=== PATIENT | male | born 1960 | race Native Hawaiian/Other Pacific Islander ===

== ENCOUNTER 2019-07-09 14:47 | Observation (INO) | payer BC ==
[~2019-07-09] VITALS: Ht 177.8 cm; Wt 135.8 kg
[~2019-07-09 14:47] MED LIST: ALLO100T22 PO; AMLO2.5T PO; ATENOLOL100 M1 PO; BENZ100C8 PO; FLUTICASONE50 MCG NAS; FUROSEMIDE20 MG PO; LOSA50TA PO
[2019-07-09 17:49] LABS: PLATELET COUNT 279 K/uL (142-355)
[2019-07-09 18:05] LABS: POTASSIUM 3.4 mmol/L (3.6-5.2)
[2019-07-09 18:24] VITALS: BP 148/86; TEMP 98.9; Ht 177.8 cm; Wt 135.8 kg
--- NOTE | 2019-07-09 18:30 | NUR ---
1830 DR MONTEJO INFORMED OF CONSULT. NO NEW ORDERS REC'D AT THIS TIME.
[2019-07-09] MEDS ORDERED: ALBU90AE13 INH (18:39)
[2019-07-09] MEDS ORDERED: PANTOPRAZOLE 40MG TA PO (18:40)
[2019-07-09] MEDS ORDERED: POTASSIUM CHLO20 ME1 PO (18:40)
[2019-07-09] MEDS ORDERED: CYCLOBENZAPRINE10 MG PO (18:40)
[2019-07-09] MEDS ORDERED: FLONASE AL50 MCG/ACT NAS (18:41)
[2019-07-09] MEDS ORDERED: CLARITIN10 MG PO (18:42)
[2019-07-09] MEDS ORDERED: AMLODIPINE BESYLATE PO (18:42)
[2019-07-09] MEDS ORDERED: FURO20TA67 PO (18:43)
[2019-07-09] MEDS ORDERED: TRAMADOL HYDROC50 MG PO (18:44)
[2019-07-09] MEDS ORDERED: TESTOST CYP200 MG/ML IM (18:44)
[2019-07-09] MEDS ORDERED: TAMS0.4C PO (18:45)
[2019-07-09] MEDS ORDERED: LIPITOR10 MG PO (18:45)
--- NOTE | 2019-07-09 19:23 | NUR ---
1834 DR MONTEJO PHONED CONCERNING CONSULT. NO NEW ORDERS REC'D AT THIS TIME. HE STATED HE WILL SEE PT TOMORROW.
[2019-07-09 20:00] VITALS: BP 127/81; TEMP 97.9
[2019-07-10] VITALS: BP 129/76; TEMP 98.2
--- NOTE | 2019-07-10 00:05 | NUR ---
CHEST X-RAY CONFIRMED PLACEMENT OF NG TUBE SATISFACTORY POSITION.
[2019-07-10 04:00] VITALS: BP 136/89; TEMP 98
[2019-07-10 04:29] LABS: POTASSIUM 3.4 mmol/L (3.6-5.2)
[2019-07-10 04:38] LABS: PLATELET COUNT 247 K/uL (142-355)
[2019-07-10 08:00] VITALS: BP 144/81; TEMP 98.1
[2019-07-10 12:00] VITALS: BP 145/91; TEMP 97.6
== END 2019-07-10 19:35 | disposition home or self-care (01) ==
LOC: MED/SURG 14:47
PROVIDERS: Internal Medicine; ADMIT Nurse Practitioner Family
DX: S71.112D Laceration without foreign body, left thigh, subsequent encounter (principal); L03.116 Cellulitis of left lower limb; I49.8 Other specified cardiac arrhythmias; Z95.0 Presence of cardiac pacemaker; I10 Essential (primary) hypertension; I50.30 Unspecified diastolic (congestive) heart failure; N40.0 Benign prostatic hyperplasia without lower urinary tract symptoms; J30.2 Other seasonal allergic rhinitis; E78.49 Other hyperlipidemia
CPT/HCPCS: 80048; 80053; 85027; 85651; 86140; 87040; 87070; 87077; 87186; 87205; 99220; G0378; G0379; J2185; J3370